=== PATIENT | female | born 1995 | race Caucasian/White ===

== ENCOUNTER 2016-06-18 19:16 | Emergency (ER) | payer MEDICAID ==
--- NOTE | 2016-06-18 19:33 | EDM.PDOC ---
ED HPI GENERAL MEDICAL PROBLEM - General Chief Complaint: Abdominal Pain Stated Complaint: ABDOMINAL PAIN Time Seen by Provider: 06/18/16 19:33 Source of Information: Reports: Patient - History of Present Illness INITIAL COMMENTS - FREE TEXT/NARRATIVE: HISTORY AND PHYSICAL: History of present illness: [] Patient presents with abdominal pain for 3 days more left sided per patient she rates 5/10 nonradiating, no fever nausea vomiting chills sweats She has not eaten since this morning but that is her usual course not out of the ordinary for her Review of systems: As per history of present illness and below otherwise all systems reviewed and negative. Past medical history: As per history of present illness and as reviewed below otherwise noncontributory. Surgical history: As per history of present illness and as reviewed below otherwise noncontributory. Social history: No reported history of drug or alcohol abuse. Family history: As per history of present illness and as reviewed below otherwise noncontributory. Physical exam: HEENT: Atraumatic, normocephalic, pupils reactive, negative for conjunctival pallor or scleral icterus, mucous membranes moist, throat clear, neck supple, nontender, trachea midline. Lungs: Clear to auscultation, breath sounds equal bilaterally, chest nontender. Heart: S1S2, regular, negative for clicks, rubs, or JVD. Abdomen: Soft, nondistended, she is more tender on the left with guarding no rebound right is also tender with mild guarding no rebound psoas sign is negative. Negative for masses or hepatosplenomegaly. Negative for costovertebral tenderness. Pelvis: Stable nontender. Genitourinary: Deferred. Rectal: Deferred. Extremities: Atraumatic, negative for cords or calf pain. Neurovascular unremarkable. Neuro: Awake, alert, oriented. Cranial nerves II through XII unremarkable. Cerebellum unremarkable. Motor and sensory unremarkable throughout. Exam nonfocal. Diagnostics: [] Lab as below CT abdomen pelvis with contrast Therapeutics: [] Liter normal saline bolus Toradol 10 mg by mouth 3 times a day when necessary Impression: [] Abdominal pain There is equivocal findings for appendicitis on CT however no white count or fever and pain remains left-sided, I did discuss her case with Dr. Rosenthal he would like to see her in the clinic he recommends clear liquid diet and followup unless she were to become more symptomatic tonight and would have to return but would change this plan. I did discuss in detail the plan with the patient and her mother, the patient would like to avoid surgery if at all possible and is agreeable to this plan and voices understanding Definitive disposition and diagnosis as appropriate pending reevaluation and review of above. Left Lower Abdomen Pain Score (Numeric/FACES): 4 - Related Data Allergies Allergy/AdvReac Type Severity Reaction Status Date / Time No Known Allergies Allergy Verified 06/18/16 19:29 Home Meds: Home Meds . [No Known Home Meds] 06/18/16 [History] Past Medical History - Past Health History Medical/Surgical History: Denies Medical/Surgical History [employer] History: Reports: Social & Family History - Family History Cardiac: Reports: Bypass, Heart failure, High cholesterol, Hypertension, OR Respiratory: Reports: COPD OBGYN: Reports: Psychiatric: Reports: Anxiety, Depression Endocrine/Metabolic: Reports: Diabetes, type II - Tobacco Use Smoking Status *Q: Never Smoker Second Hand Smoke Exposure: No - Recreational Drug Use Recreational Drug Use: No ED ROS GENERAL - Review of Systems Review Of Systems: ROS reveals no pertinent complaints other than HPI. ED EXAM, GENERAL - Physical Exam Exam: See Below Course - Vital Signs Last Recorded V/S: Last Vital Signs Temp 35.9 C 06/18/16 19:30 Pulse 77 06/18/16 19:30 Resp 17 06/18/16 19:30 BP 124/89 06/18/16 19:30 Pulse Ox 99 06/18/16 19:30 - Orders/Labs/Meds Orders: Active Orders 24 hr Category Date Time Status Abdomen Pelvis w Cont [CT] Stat Exams 06/18/16 20:00 Taken Labs: Laboratory Tests 06/18/16 06/18/16 06/18/16 Range/Units 19:40 19:40 19:50 WBC 8.33 (4.0-11.0) K/uL RBC 4.23 L (4.30-5.90) M/uL Hgb 12.3 (12.0-16.0) g/dL Hct 36.7 (36.0-46.0) % MCV 86.8 (80.0-98.0) fL MCH 29.1 (27.0-32.0) pg MCHC 33.5 (31.0-37.0) g/dL RDW Std Deviation 43.6 (28.0-62.0) fl RDW Coeff of Laxmi 14 (11.0-15.0) % Plt Count 267 (150-400) K/uL MPV 10.00 (7.40-12.00) fL Neut % (Auto) 59.4 (48.0-80.0) % Lymph % (Auto) 33.4 (16.0-40.0) % [place] % (Auto) 5.4 (0.0-15.0) % Eos % (Auto) 1.6 (0.0-7.0) % Baso % (Auto) 0.2 (0.0-1.5) % Neut # 5.0 (1.4-5.7) K/uL Lymph # 2.8 H (0.6-2.4) K/uL [place] # 0.5 (0.0-0.8) K/uL Eos # 0.1 (0.0-0.7) K/uL Baso # 0.0 (0.0-0.1) K/uL Nucleated RBC % 0.0 /100WBC Nucleated RBCs # 0 K/uL Sodium (136-146) mmol/L Potassium (3.5-5.1) mmol/L Chloride (98-110) mmol/L Carbon Dioxide (21-31) mmol/L BUN (6.0-23.0) mg/dL Creatinine (0.6-1.5) mg/dL Est Cr Clr Drug Dosing mL/min Estimated GFR (MDRD) ml/min Glucose (60-110) mg/dL Calcium (8.8-10.8) mg/dL Total Bilirubin (0.1-1.5) mg/dL AST (5-40) IU/L ALT (8-54) IU/L Alkaline Phosphatase (40-150) Total Protein (6.0-8.0) g/dL Albumin (3.5-5.0) g/dL Globulin (2.0-3.5) g/dL Albumin/Globulin Ratio (1.3-2.8) Urine Color YELLOW Urine Appearance CLEAR Urine pH 7.0 (5.0-8.0) Ur Specific [place] 1.020 (1.001-1.035) Urine Protein NEGATIVE (NEGATIVE) mg/dL Urine Glucose (UA) NEGATIVE (NEGATIVE) mg/dL Urine Ketones 15 H (NEGATIVE) mg/dL Urine Occult Blood NEGATIVE (NEGATIVE) Urine Nitrite NEGATIVE (NEGATIVE) Urine Bilirubin NEGATIVE (NEGATIVE) Urine Urobilinogen 0.2 (<2.0) EU/dL Ur Leukocyte Esterase NEGATIVE (NEGATIVE) Urine RBC 0-1 (0-2/HPF) Urine WBC 0-2 (0-5/HPF) Ur Epithelial Cells FEW (NONE-FEW) Urine Bacteria FEW (NEGATIVE) Urine HCG, Qual NEGATIVE (NEGATIVE) 06/18/16 Range/Units 19:50 WBC (4.0-11.0) K/uL RBC (4.30-5.90) M/uL Hgb (12.0-16.0) g/dL Hct (36.0-46.0) % MCV (80.0-98.0) fL MCH (27.0-32.0) pg MCHC (31.0-37.0) g/dL RDW Std Deviation (28.0-62.0) fl RDW Coeff of Laxmi (11.0-15.0) % Plt Count (150-400) K/uL MPV (7.40-12.00) fL Neut % (Auto) (48.0-80.0) % Lymph % (Auto) (16.0-40.0) % [place] % (Auto) (0.0-15.0) % Eos % (Auto) (0.0-7.0) % Baso % (Auto) (0.0-1.5) % Neut # (1.4-5.7) K/uL Lymph # (0.6-2.4) K/uL [place] # (0.0-0.8) K/uL Eos # (0.0-0.7) K/uL Baso # (0.0-0.1) K/uL Nucleated RBC % /100WBC Nucleated RBCs # K/uL Sodium 140 (136-146) mmol/L Potassium 3.4 L (3.5-5.1) mmol/L Chloride 105 (98-110) mmol/L Carbon Dioxide 22 (21-31) mmol/L BUN 10 (6.0-23.0) mg/dL Creatinine 0.8 (0.6-1.5) mg/dL Est Cr Clr Drug Dosing 95.09 mL/min Estimated GFR (MDRD) > 60.0 ml/min Glucose 95 (60-110) mg/dL Calcium 9.8 (8.8-10.8) mg/dL Total Bilirubin 0.5 (0.1-1.5) mg/dL AST 15 (5-40) IU/L ALT 13 (8-54) IU/L Alkaline Phosphatase 63 (40-150) Total Protein 8.0 (6.0-8.0) g/dL Albumin 4.6 (3.5-5.0) g/dL Globulin 3.4 (2.0-3.5) g/dL Albumin/Globulin Ratio 1.4 (1.3-2.8) Urine Color Urine Appearance Urine pH (5.0-8.0) Ur Specific [place] (1.001-1.035) Urine Protein (NEGATIVE) mg/dL Urine Glucose (UA) (NEGATIVE) mg/dL Urine Ketones (NEGATIVE) mg/dL Urine Occult Blood (NEGATIVE) Urine Nitrite (NEGATIVE) Urine Bilirubin (NEGATIVE) Urine Urobilinogen (<2.0) EU/dL Ur Leukocyte Esterase (NEGATIVE) Urine RBC (0-2/HPF) Urine WBC (0-5/HPF) Ur Epithelial Cells (NONE-FEW) Urine Bacteria (NEGATIVE) Urine HCG, Qual (NEGATIVE) Meds: Medications Discontinued Medications Generic Name Dose Route Start Last Admin Trade Name Freq PRN Reason Stop Dose Admin Sodium Chloride 1,000 mls @ 999 mls/hr 06/18/16 19:59 06/18/16 20:47 Normal Saline IV 06/18/16 20:59 999 mls/hr STAT ONE Administration Departure - Departure Time of Disposition: 21:46 Disposition: Home, Self-Care 01 Condition: good Clinical Impression: Abdominal pain Forms: ED Department Discharge Additional Instructions: Clear liquid diet as discussed water and/or Gatorade Medication as prescribed Return to ER if symptoms persist or worsen throughout the night as discussed, the surgeon would like you to call the clinic tomorrow and they would fit you in to the schedule in the afternoon for reexamination [facility] - General Surgery Professional [address], [address] [place] [address] The following information is given to patients seen in the emergency department who are being discharged to home. This information is to outline your options for follow-up care. We provide all patients seen in our emergency department with a follow-up referral. The need for follow-up, as well as the timing and circumstances, are variable depending upon the specifics of your emergency department visit. If you don't have a primary care physician on staff, we will provide you with a referral. We always advise you to contact your personal physician following an emergency department visit to inform them of the circumstance of the visit and for follow-up with them and/or the need for any referrals to a consulting specialist. The emergency department will also refer you to a specialist when appropriate. This referral assures that you have the opportunity for follow-up care with a specialist. All of these measure are taken in an effort to provide you with optimal care, which includes your follow-up. Under all circumstances we always encourage you to contact your private physician who remains a resource for coordinating your care. When calling for follow-up care, please make the office aware that this follow-up is from your recent emergency room visit. If for any reason you are refused follow-up, please contact the [facility] emergency department at and asked to speak to the emergency department charge nurse. - My Orders Last 24 Hours: My Active Orders 06/18/16 20:00 Abdomen Pelvis w Cont [CT] Stat - Assessment/Plan Last 24 Hours: My Active Orders 06/18/16 20:00 Abdomen Pelvis w Cont [CT] Stat
[2016-06-18 19:34] VITALS: BP 124/89
[2016-06-18] MEDS ORDERED: Sodium Chloride 0.9% 1,000 ML IV ONE (19:59)
[2016-06-18 20:21] LABS: CHLORIDE,CL 105 mmol/L (98-110); SODIUM,NA 140 mmol/L (136-146)
[2016-06-18] MEDS ORDERED: Ketorolac 30 MG/ML SDV IVPUSH ONE (21:50)
--- NOTE | 2016-06-19 18:56 | CT ---
EXAM DATE: 06/18/16 PATIENT'S AGE: 20 Patient: AUGIE JOVEL Facility: [place], [place] Site . Site : 1995 Study: CT Abdomen/Pelvis [id number]/5/2017 8:43:00 PM Ordering Physician: Melani Alvarado Final Report: INDICATION: abd pain HISTORY: Abdominal pain. COMPARISON: None. TECHNIQUE: CT of the abdomen and pelvis. Intravenous contrast utilized. Coronal/sagittal reconstruction images. FINDINGS: Lung bases: There is no pleural or pericardial effusion. The heart size is normal. The lung bases demonstrate no acute airspace disease. There is no basilar pneumothorax. Abdomen/pelvis: No solid hepatic mass. Hepatic morphology is normal. Spleen size is normal. Symmetric nephrograms. No solid renal mass. No perinephric edema. No adrenal mass. No pancreatic mass or pancreatic duct dilation. No glandular atrophy. There is a small amount of free fluid in the pelvis. There is no adnexal mass. There is collapse of the colon, which mimics wall thickening. There is no mucosal hyper enhancement or small bowel obstruction. The appendix is seen best on series 201, image 116. This measures 8 mm in dimension. This finding is indeterminate for appendicitis. The appendix is also best seen on series 203, image 33. It has a mildly thickened wall, and surgical consultation should be considered. There is a paucity of adjacent fat stranding. There is no abdominal aortic aneurysm. Visceral artery branches are patent. No abdominal or pelvic lymphadenopathy by size criteria. IMPRESSION: 1. There is borderline dilation of the appendix, with questionable wall thickening. The findings are equivocal for acute appendicitis, as there is gas in the lumen of this structure, and a paucity of adjacent fat stranding. Per my discussion with the referring physician, the patient has left-sided pain, and no leukocytosis. Therefore, appendicitis is unlikely. 2. Trace amount of free fluid in the pelvis. This is physiologic. No drainable fluid collection. 3. No abdominal/pelvic lymphadenopathy. 4. Report called to Dr. Polo, Emergency Department, 06/18/16, 2116 hours. Dictated by Talon Carrillo MD @ 06/18/2016 9:14:37 PM Dictated by: Talon Carrillo MD @ 06/18/2016 21:14:48 (Electronic Signature) Report Signed by Proxy and Original Signed Document filed in the Medical Record. [facility]
== END 2016-06-18 22:39 | disposition home or self-care (01) ==
LOC: MW.ED 19:16
DX: R10.9 Unspecified abdominal pain (principal)
CPT/HCPCS: 36415; 74177; 80053; 81001; 81025; 85025; 96372; 99284; J1885; J7040; 99283